=== PATIENT | female | born 1950 | race Caucasian/White ===

== ENCOUNTER → 2016-05-29 | Outpatient (CLI) | payer MEDICARE, MEDICAID ==
[~2016-05-29] MED LIST: BALSALAZIDE DI750 MG PO; BUPROPION HYDR150 M1 PO; CIPRO 250MG TA250 MG PO; DICLOFENAC 50MG50 MG PO; FLAGYL500 M1 PO; HUMIRA40 MG/0.3 SQ; INSULIN GL100 UNITS/ SC; MERCAPTOPURINE PO; OMEPRAZOLE40 MG PO; VENTOLIN H0.09 MG/Ac IH
== END ==
LOC: LAB 16:56
DX: K50.80 Crohn's disease of both small and large intestine without complications (principal)